=== PATIENT | female | born 2000 | race Caucasian/White ===

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

== ENCOUNTER 2019-08-06 19:26 | Emergency (ER) | payer MEDICAID, OTHER ==
[~2019-08-06] VITALS: Ht 160 cm; Wt 63.0 kg
--- NOTE | 2019-08-06 19:40 | NUR ---
Patient bib mother, wheeled in via w/c for c/o s/p slip and fall approx 2 days ago. A/Ox4. Speech is clear, speaks in complete sentences. Denies having any head trauma and only part of her body that she has pain is her left ankle. Patient had good pedal pulse, and denies any loss of sensation or any tingling to the affected extremity. Patient is unable to bear weight, and LROM in the left lower extremity. Patient in bed at lowest position, sr upx2, call light within reach. Fall precautions implemented per protocol. Mother(caregiver) at bedside accompanying patient.
--- NOTE | 2019-08-06 20:13 | NUR ---
IVONE ON THE LINE WITH DR. ESCALANTE
--- NOTE | 2019-08-06 22:57 | NUR ---
Patient discharged to home in stable condition. Written and verbal after care instructions given. Patient verbalizes understanding of instructions. Stressed follow up or return to ER for worsening s/s.
[2019-08-06 22:59] VITALS: BP 121/79
== END 2019-08-06 23:00 | disposition home or self-care (01) ==
LOC: ER 19:30
DX: S82.392A Other fracture of lower end of left tibia, initial encounter for closed fracture (principal); S82.832A Other fracture of upper and lower end of left fibula, initial encounter for closed fracture; W18.30XA Fall on same level, unspecified, initial encounter; Y92.89 Other specified places as the place of occurrence of the external cause; G60.0 Hereditary motor and sensory neuropathy
CPT/HCPCS: 73610; 73630; A4663

== ENCOUNTER 2021-11-04 11:31 | Emergency (ER) | payer OTHER ==
[~2021-11-04] VITALS: Ht 160 cm; Wt 63.5 kg
== END 2021-11-04 12:56 | disposition home or self-care (01) ==
LOC: ER 11:34
DX: R07.9 Chest pain, unspecified (principal); G60.0 Hereditary motor and sensory neuropathy; Q74.1 Congenital malformation of knee
CPT/HCPCS: 71045; 93005; A4663

== ENCOUNTER 2022-05-07 19:18 | Emergency (ER) | payer OTHER ==
[~2022-05-07] VITALS: Ht 160 cm; Wt 63.5 kg
--- NOTE | 2022-05-07 19:59 | NUR ---
Patient came into ER with use of walker accompanied by her Aunt, c/o right side of throat pain and swelling, difficulty swallowing, chills, dizziness and weakness for 3 days. Patient took tablet of motrin 2hrs ago.
[2022-05-07] MEDS ORDERED: ACETAMINOPHEN ES 500 MG TABLET PO ONE (20:15)
[2022-05-07] MEDS ORDERED: ACETAMINOPHEN ES 500 MG TABLET ONE (20:26)
[2022-05-07] MEDS ORDERED: IV NS 1000 ML 1,000 ML IV ONE (20:30)
[2022-05-07 21:33] LABS: *MONOTEST POSITIVE (NEGATIVE)
--- NOTE | 2022-05-07 23:08 | NUR ---
Dr. Cornejo at bedside.
[2022-05-07] MEDS ORDERED: IBUP-1955 PO (23:12)
[2022-05-07 23:30] VITALS: BP 101/63
--- NOTE | 2022-05-07 23:30 | NUR ---
Patient discharged to home in stable condition. Written and verbal after care instructions given. Patient verbalizes understanding of instructions. Stressed follow up or return to ER for worsening s/s. Pt ambulated out of the ER with 4 wheelwalker. All belongings with pt.
== END 2022-05-07 23:31 | disposition home or self-care (01) ==
LOC: ER 19:25
DX: B27.90 Infectious mononucleosis, unspecified without complication (principal); Z88.1 Allergy status to other antibiotic agents; Z20.822 Contact with and (suspected) exposure to COVID-19
CPT/HCPCS: 99283; 96360; 87426; 87804; 86308; 86403; 36415; J7040; A4663; A9150